=== PATIENT | female | born 2000 | race Caucasian/White ===

== ENCOUNTER 2020-09-11 21:01 | Emergency (ER) | payer OTHER ==
[~2020-09-11] VITALS: Ht 165.1 cm; Wt 64.9 kg
[~2020-09-11 21:01] MED LIST: ZYRTEC10 M3 PO
[2020-09-11] MEDS ORDERED: PREDNISONE 20 MG TAB PO STA (21:10)
[2020-09-11] MEDS ORDERED: FAMOTIDINE 20 MG TAB PO STA (21:10)
[2020-09-11] MEDS ORDERED: DIPHENHYDRAMINE HCL 25 MG CAP PO STA (21:10)
[2020-09-11] MEDS ORDERED: EPINEPHRINE HCL 1:1000 1ML 1 MG/ML AMP INJ ONE (21:15)
[2020-09-11 22:46] VITALS: BP 126/74
== END 2020-09-11 22:47 | disposition home or self-care (01) ==
LOC: ER 21:04
DX: L50.9 Urticaria, unspecified (principal)
CPT/HCPCS: 99283; J0171; J7512